=== PATIENT | male | born 2000 | race Caucasian/White ===

== ENCOUNTER → 2021-03-27 | Outpatient (CLI) | payer OTHER ==
[~2021-03-27] MED LIST: ACET500P24 PO; ALBUHFA IH; AMOX-426 PO; BECLNS NASAL
== END | disposition home or self-care (01) ==
LOC: RAH 10:36
PROVIDERS: ATTEND Internal Medicine Critical Care Medicine
DX: I08.8 Other rheumatic multiple valve diseases (principal); R55 Syncope and collapse; I27.20 Pulmonary hypertension, unspecified
CPT/HCPCS: 93306; 93356